=== PATIENT | male | born 1960 | race Caucasian/White ===

== ENCOUNTER 2019-02-16 17:09 | Inpatient (IN) | payer OTHER ==
[~2019-02-16] VITALS: Ht 175.3 cm; Wt 103.9 kg
--- NOTE | 2019-02-16 18:59 | Diagnostic Imaging Report ---
Examination: Single AP view of the chest. COMPARISON: None. INDICATION: Cough DISCUSSION: Lines/tubes: None. Lungs: The lungs are well inflated and clear. No pneumonia or pulmonary edema. Pleura: No pleural effusion or pneumothorax. Heart and mediastinum: The heart and the mediastinum are unremarkable. Bones and soft tissues: No acute bony abnormalities. IMPRESSION: 1. No acute cardiopulmonary abnormalities. Signed by: Dr. Gonzalez Holly M.D. on 02/16/2019 6:56 PM
[2019-02-16 19:55] LABS: BASOPHILS # (AUTO) 0.1 (0.0-0.1); BASOPHILS % 0.6 % (0.0-1.0); EOSINOPHILS # (AUTO) 0.2 (0.0-0.4); EOSINOPHILS % 1.3 % (0.0-6.0); HEMATOCRIT 42.8 % (38.2-49.6); HEMOGLOBIN 15.1 g/dL (14.0-18.0); LYMPHOCYTES % 19.1 % (18.0-39.1); MEAN CORPUSCULAR HEMOGLOBIN 31.4 pg (28-32); MEAN CORPUSCULAR HGB CONC 35.3 g/dL (31-35); MONOCYTES # (AUTO) 1.3 (0.2-0.8); MONOCYTES % 8.3 % (4.4-11.3); NEUTROPHILS # (AUTO) 11.2 (2.1-6.9); NEUTROPHILS % 70.4 % (38.7-80.0); PLATELET COUNT 270 x10e3/uL (140-360); RED BLOOD COUNT 4.81 x10e6/uL (4.3-5.7); RED CELL DISTRIBUTION WIDTH 13.8 % (11.7-14.4)
[2019-02-16] MEDS: VANCOMYCIN 1GM/NS 250 ML 250 ML IV SCH (20:05)
[2019-02-16 20:06] LABS: PROTHROMBIN TIME 13.7 seconds (11.9-14.5)
[2019-02-16] MEDS: PIPER-TAZ 3.375 GM 50 ML IV SCH (20:10)
[2019-02-16 20:13] LABS: ALANINE AMINOTRANSFERASE 36 IU/L (0-55); ALBUMIN 3.7 g/dL (3.5-5.0); ALBUMIN/GLOBULIN RATIO 0.8 (0.8-2.0); ALKALINE PHOSPHATASE 95 IU/L (40-150); ANION GAP 19.2 mmol/L (8-16); BLOOD UREA NITROGEN 16 mg/dL (7-26); BUN/CREATININE RATIO 14 (6-25); CALCIUM 10.5 mg/dL (8.4-10.2); CARBON DIOXIDE 24 mmol/L (22-29); CHLORIDE 99 mmol/L (98-107); CREATINE KINASE 598 IU/L (30-200); CREATININE, SERUM 1.14 mg/dL (0.72-1.25); EST GLOMERULAR FILTRATION RATE > 60 ML/MIN (60-); GLUCOSE 103 mg/dL (74-118); POTASSIUM 4.2 mmol/L (3.5-5.1); SODIUM 138 mmol/L (136-145)
--- NOTE | 2019-02-16 20:30 | NUR ---
ECHOCASCULAR TECH AT BEDSIDE FOR SONOGRAM AT THIS TIME.
[2019-02-16 20:46] LABS: B-TYPE NATRIURETIC PEPTIDE2 27.9 pg/mL (0-100)
[2019-02-16] MEDS ORDERED: ACETAMINOPHEN 325 MG TAB PO ONE (21:00)
[2019-02-16] MEDS ORDERED: MORPHINE SULFATE INJ 4 MG/ML INJ 1ML IV PRN (21:00)
[2019-02-16] MEDS ORDERED: MORPHINE SULFATE 2 MG/ML SYR 1ML IV PRN (21:00)
--- OUTSIDE RECORDS SUMMARY | 2019-02-16 21:21 | XMS REPORT ---
[facility] Address Unknown Phone Unavailable Care Team Providers Care Table Setter Name Role Phone Cookie TILLMAN Unavailable Unavailable Problems This patient has no known problems. Allergies, Adverse Reactions, Alerts This patient has no known allergies or adverse reactions. Medications This patient has no known medications. Results Test Description Test Time Test Comments Text Results Atomic Results Result Comments CHEST SINGLE (PORTABLE) 2019-02-16 18:55:00 [facility] [address] [address] Patient Name: DANTE APARICIO MR #: [id number] : 1960 Age/Sex: 59/M Req #: [id number] Adm Physician: Ordered by: MURIEL VILLASENOR OUT OF TOWN COLLECTION CLERK Report #: [id number] Location: ER Room/Bed: Procedure: [id number] DX/CHEST SINGLE (PORTABLE) Exam Date: 02/16/19 Exam Time: 1830 REPORT STATUS: Signed Examination: Single AP view of the chest. COM PARISON: None. INDICATION: Cough DISCUSSION: Lines/tubes: None. Lungs: The lungs are well inflated and clear. No pneumonia or pulmonary edema. Pleura: No pleural effusion or pneumothorax. Heart and mediastinum: The heart and the mediastinum are unremarkable. Bones and soft tissues: No acute bony abnormalities. IMPRESSION: 1. No acute cardiopulmonary abnormalities. Signed by: Dr. Ankit Garland M.D. on 02/16/2019 6:56 PM Dictated By: ANKIT GARLAND MD 56 Transcribed By: MALDONADO on 02/16/191855 COPY TO: MURIEL VILLASENOR NP
[2019-02-16] MEDS: SODIUM CHLORIDE 0.9% 1000ML 1,000 ML IV SCH (21:50)
[2019-02-16] MEDS: ONDANSETRON HCL INJ 2MG/ML 2ML 2 MG/ML VIAL IV PRN (21:50)
[2019-02-16] MEDS: MORPHINE SULFATE INJ 4 MG/ML INJ 1ML IV PRN (21:50)
[2019-02-16 23:14] VITALS: BP 124/58
[2019-02-16 23:26] VITALS: BP 124/58
[2019-02-17] VITALS (8 sets, daily range): BP systolic 124–144; BP diastolic 58–65
[2019-02-17] MEDS ORDERED: CRESTOR10 MG PO (00:11)
[2019-02-17] MEDS ORDERED: GABAPENTIN400 MG PO (00:11)
[2019-02-17] MEDS ORDERED: TYLENOL WITH C1 EAC1 PO (00:11)
[2019-02-17] MEDS ORDERED: BACLOFEN10 MG PO (00:11)
[2019-02-17] MEDS ORDERED: ATENOLOL50 MG PO (00:11)
[2019-02-17] MEDS ORDERED: ALLOPURINOL300 MG PO (00:11)
[2019-02-17] MEDS: MORPHINE SULFATE INJ 4 MG/ML INJ 1ML IV PRN ×5 (00:22→20:35)
[2019-02-17] MEDS: ONDANSETRON HCL INJ 2MG/ML 2ML 2 MG/ML VIAL IV PRN (03:56)
[2019-02-17 05:51] LABS: BASOPHILS # (AUTO) 0.1 (0.0-0.1); BASOPHILS % 0.6 % (0.0-1.0); EOSINOPHILS # (AUTO) 0.3 (0.0-0.4); EOSINOPHILS % 1.9 % (0.0-6.0); HEMATOCRIT 40.4 % (38.2-49.6); HEMOGLOBIN 13.4 g/dL (14.0-18.0); LYMPHOCYTES # (AUTO) 2.5 (1.0-3.2); LYMPHOCYTES % 15.2 % (18.0-39.1); MEAN CORPUSCULAR HEMOGLOBIN 30.6 pg (28-32); MEAN CORPUSCULAR HGB CONC 33.2 g/dL (31-35); MEAN CORPUSCULAR VOLUME 92.2 fL (81-99); MONOCYTES # (AUTO) 1.5 (0.2-0.8); MONOCYTES % 9.4 % (4.4-11.3); NEUTROPHILS # (AUTO) 11.7 (2.1-6.9); NEUTROPHILS % 72.5 % (38.7-80.0); PLATELET COUNT 255 x10e3/uL (140-360); RED BLOOD COUNT 4.38 x10e6/uL (4.3-5.7)
[2019-02-17] MEDS: PIPER-TAZ 3.375 GM 50 ML IV SCH ×3 (05:53→22:58)
[2019-02-17] MEDS: SODIUM CHLORIDE 0.9% 1000ML 1,000 ML IV SCH ×3 (05:53→20:57)
[2019-02-17 06:09] LABS: ALANINE AMINOTRANSFERASE 44 IU/L (0-55); ALBUMIN/GLOBULIN RATIO 0.8 (0.8-2.0); ALKALINE PHOSPHATASE 108 IU/L (40-150); ANION GAP 13.9 mmol/L (8-16); BLOOD UREA NITROGEN 16 mg/dL (7-26); BUN/CREATININE RATIO 16 (6-25); CALCIUM 9.1 mg/dL (8.4-10.2); CARBON DIOXIDE 25 mmol/L (22-29); CHLORIDE 102 mmol/L (98-107); CREATININE, SERUM 1.03 mg/dL (0.72-1.25); EST GLOMERULAR FILTRATION RATE > 60 ML/MIN (60-); GLUCOSE 113 mg/dL (74-118); POTASSIUM 3.9 mmol/L (3.5-5.1); SODIUM 137 mmol/L (136-145)
--- NOTE | 2019-02-17 07:25 | NUR ---
PT IN BED SLEEPING NO DISTRESS NOTED,NO S/S DISCOMFORT
[2019-02-17] MEDS ORDERED: ACETAMINOPHEN 325 MG TAB PO ONE (07:30)
[2019-02-17] MEDS: VANCOMYCIN 1GM/NS 250 ML 250 ML IV SCH ×2 (09:07→20:35)
--- NOTE | 2019-02-17 11:00 | NUR ---
PT C/O RT LEG PAIN LEVEL 6 MEDICATED
--- NOTE | 2019-02-17 14:05 | NUR ---
SOCIAL WORK INITIAL ASSESSMENT Washing Machine Mechanic to bedside to discuss plan of care with patient/family. CM/SW role and care transitions discussed. Anticipated discharge plan discussed along with duration of care. CM/SW discussed patients right to make decisions in care. CM/SW work hours given. Patient lives: IN OWN HOUSE WITH FAMILY Admit/Transfer: VIA ED POA/Emergency contact: LISA [phone] Current/Previous Home Health: NONE PCP/Follow-up Care: CLEMENTINE PATHAK Current/Previous DME: CPAP AT NIGHT Other Services: NONE Employment Status: [employer] Areas of Concerns: NONE Referral Needs: NONE Education Needs: NONE IMM/RÍOS given and signed (if applicable): NA Goal for discharge: RETURN HOME NO NEEDS CM/SW left business card at the bedside with contact information. Name and number was also written on the patients whiteboard. Patient verbalized understanding of discussion. CM will follow-up with ongoing discharge and transition of care needs.
--- NOTE | 2019-02-17 15:40 | NUR ---
H&P cc: right leg pain HPI: 59yoM, PCP none, developed right leg pain/redness for 2 days; with fever/chills/sweats. No prior cellulitis. Denies DM. PMH: Obesity, gout, HTN, Neuropathy, HLD, PSHx: none Allergies; see emr Fh/SH;; occ etoh; cigar occasionally Meds; see MAR rOS: no sob/cp/ANDINO/vision changes/skin rash/diarrhea/vomiting v/s; rev'd PE tired appearing anicteric ns1s2 mod bs soft nt nd right foreleg beefy red, warm, tender, edematous. DP 1+ labs/meds rev'd A/P: 59yoM Cellulitis of right leg Right leg edema HTN HLD Gout Neuropathy Obesity PLAN U/S negative for dvt IV abx hab1c resume home meds Lovenox Ronald Lee MD, PhD.
[2019-02-17] MEDS: ENOXAPARIN SOD INJ 40 MG/0.4 ML SYR SC SCH (17:00)
--- NOTE | 2019-02-17 18:12 | NUR ---
PT UP IN BED NO DISTRESS NOTED ,PAIN LEVEL 3
[2019-02-17] MEDS: SIMVASTATIN 20 MG TAB PO SCH (20:34)
[2019-02-17] MEDS ORDERED: GABAPENTIN 300 MG CAP PO SCH (21:00)
[2019-02-18] VITALS (8 sets, daily range): BP systolic 117–142; BP diastolic 56–72
[2019-02-18] MEDS: MORPHINE SULFATE INJ 4 MG/ML INJ 1ML IV PRN ×5 (00:07→20:13)
[2019-02-18] MEDS: SODIUM CHLORIDE 0.9% 1000ML 1,000 ML IV SCH ×3 (04:06→20:12)
[2019-02-18] MEDS: PIPER-TAZ 3.375 GM 50 ML IV SCH ×3 (05:18→14:03)
--- NOTE | 2019-02-18 08:00 | NUR ---
RECD PT IN BED AWAKE NEEDS IV,IV RESTARTED TO RT HAND 20 GAUGE.
--- NOTE | 2019-02-18 08:55 | NUR ---
PT C/O PAIN MEDICATED.
[2019-02-18] MEDS ORDERED: ALLOPURINOL 300 MG TAB PO SCH (09:00)
[2019-02-18] MEDS ORDERED: BACLOFEN 10 MG TAB PO SCH (09:00)
[2019-02-18] MEDS: VANCOMYCIN 1GM/NS 250 ML 250 ML IV SCH ×2 (09:01→20:12)
[2019-02-18] MEDS: ATENOLOL 50 MG TAB PO SCH (09:02)
--- NOTE | 2019-02-18 11:15 | NUR ---
PT TRANSPORTED TO [facility] VIA W/C
--- NOTE | 2019-02-18 12:10 | NUR ---
PT RETURNED TO ROOM ,FAREED [place][AIN
[2019-02-18] MEDS: ACETAMINOPHEN 325 MG TAB PO PRN (12:36)
[2019-02-18] MEDS ORDERED: GABAPENTIN 300 MG CAP PO SCH (15:00)
[2019-02-18] MEDS ORDERED: ONDANSETRON HCL 4 MG ORAL DISINTEGRATING TAB PO PRN (16:30)
[2019-02-18] MEDS: ENOXAPARIN SOD INJ 40 MG/0.4 ML SYR SC SCH (16:40)
--- NOTE | 2019-02-18 17:28 | NUR ---
PT UP IN BED NO DISTRESS NOTED,CULTURE OF FOT SENT TO LAB
--- NOTE | 2019-02-18 18:35 | NUR ---
IM- progress note O/N; no events rOS: no sob/cp/ANDINO/vision changes/skin rash/diarrhea/vomiting v/s; rev'd PE tired appearing anicteric ns1s2 mod bs soft nt nd right foreleg beefy red, warm, tender, edematous. DP 1+ labs/meds rev'd A/P: 59yoM Cellulitis of right leg Right leg edema HTN HLD Gout Neuropathy Obesity PLAN U/S negative for dvt IV abx hab1c resume home meds Lovenox check labs; cont abx; PreDM- hba1c is 5.8. check lipids; start ADA diet; Ronald Lee MD, PhD.
[2019-02-18] MEDS: GABAPENTIN 300 MG CAP PO SCH (20:12)
[2019-02-18] MEDS: BACLOFEN 10 MG TAB PO SCH (20:12)
[2019-02-18] MEDS: SIMVASTATIN 20 MG TAB PO SCH (20:12)
[2019-02-18] MEDS: ALLOPURINOL 300 MG TAB PO SCH (20:12)
[2019-02-19] VITALS (8 sets, daily range): BP systolic 123–151; BP diastolic 62–86
[2019-02-19] MEDS: MORPHINE SULFATE INJ 4 MG/ML INJ 1ML IV PRN ×5 (00:08→21:07)
[2019-02-19] MEDS: SODIUM CHLORIDE 0.9% 1000ML 1,000 ML IV SCH ×2 (04:37→19:16)
[2019-02-19] MEDS: PIPER-TAZ 3.375 GM 50 ML IV SCH ×3 (04:37→20:58)
[2019-02-19] MEDS: ACETAMINOPHEN 325 MG TAB PO PRN (06:11)
[2019-02-19 06:30] LABS: BASOPHILS # (AUTO) 0.1 (0.0-0.1); BASOPHILS % 0.7 % (0.0-1.0); EOSINOPHILS # (AUTO) 0.5 (0.0-0.4); EOSINOPHILS % 3.4 % (0.0-6.0); HEMATOCRIT 34.9 % (38.2-49.6); HEMOGLOBIN 12.1 g/dL (14.0-18.0); LYMPHOCYTES # (AUTO) 3.1 (1.0-3.2); LYMPHOCYTES % 19.9 % (18.0-39.1); MEAN CORPUSCULAR HEMOGLOBIN 31.7 pg (28-32); MEAN CORPUSCULAR HGB CONC 34.7 g/dL (31-35); MEAN CORPUSCULAR VOLUME 91.4 fL (81-99); MONOCYTES # (AUTO) 1.4 (0.2-0.8); MONOCYTES % 8.9 % (4.4-11.3); NEUTROPHILS # (AUTO) 10.4 (2.1-6.9); NEUTROPHILS % 66.3 % (38.7-80.0); PLATELET COUNT 361 x10e3/uL (140-360); RED BLOOD COUNT 3.82 x10e6/uL (4.3-5.7); RED CELL DISTRIBUTION WIDTH 14.5 % (11.7-14.4)
[2019-02-19 06:59] LABS: ANION GAP 13.6 mmol/L (8-16); BLOOD UREA NITROGEN 8 mg/dL (7-26); BUN/CREATININE RATIO 9 (6-25); CARBON DIOXIDE 26 mmol/L (22-29); CHLORIDE 105 mmol/L (98-107); CREATININE, SERUM 0.89 mg/dL (0.72-1.25); EST GLOMERULAR FILTRATION RATE > 60 ML/MIN (60-); GLUCOSE 113 mg/dL (74-118); POTASSIUM 3.6 mmol/L (3.5-5.1); SODIUM 141 mmol/L (136-145)
[2019-02-19 07:22] LABS: CHOL/HDL RATIO 7.4 (3.9-4.7)
--- NOTE | 2019-02-19 07:23 | NUR ---
PATIENT ASSISTED TO THE RESTROOM, SITTING AT BED SIDE. REQUESTED AND RECEIVED A CUP OF COFFEE. REDNESS AND SWELLING TO RIGHT FOOT. BED IN LOWER POSITION, CALL LIGHT AT REACH.
[2019-02-19] MEDS: GABAPENTIN 300 MG CAP PO SCH ×2 (09:21→17:32)
[2019-02-19] MEDS: ATENOLOL 50 MG TAB PO SCH (09:21)
[2019-02-19] MEDS: VANCOMYCIN 1GM/NS 250 ML 250 ML IV SCH ×2 (10:00→21:30)
--- NOTE | 2019-02-19 10:16 | NUR ---
IM- progress note O/N; no events rOS: no sob/cp/ANDINO/vision changes/skin rash/diarrhea/vomiting v/s; rev'd PE tired appearing anicteric ns1s2 mod bs soft nt nd right foreleg beefy red, warm, tender, edematous. DP 1+ labs/meds rev'd A/P: 59yoM Cellulitis of right leg Right leg edema HTN HLD Gout Neuropathy Obesity PLAN U/S negative for dvt IV abx hab1c resume home meds Lovenox check labs; cont abx; PreDM- hba1c is 5.8. check lipids; start ADA diet; 02/19 COntinue antibiotics; Ronald Lee MD, PhD.
--- NOTE | 2019-02-19 11:30 | NUR ---
PATIENT AMBULATED IN HALLWAY, NO DISTRESS OBSERVED. BACK TO BED, IV FLUID INFUSING ORDERED. CALL LIGHT AT REACH.
--- NOTE | 2019-02-19 15:34 | NUR ---
MD IN TO SEE PATIENT, NEW ORDER RECEIVED.
[2019-02-19] MEDS: ENOXAPARIN SOD INJ 40 MG/0.4 ML SYR SC SCH (17:32)
--- NOTE | 2019-02-19 19:20 | NUR ---
patient received awake, alert, lying quietly in bed. no c/o pain noted. ivf continue to infuse without difficulty. right leg remains red with 2+ edema. pm assessment complete. patient instructed to call for assistance when needed.
[2019-02-19] MEDS: SIMVASTATIN 20 MG TAB PO SCH (20:58)
[2019-02-19] MEDS: ALLOPURINOL 300 MG TAB PO SCH (20:58)
[2019-02-19] MEDS: BACLOFEN 10 MG TAB PO SCH (20:58)
--- NOTE | 2019-02-19 21:07 | NUR ---
patient medicated with morphine 4 mg ivp for right leg pain 7/ at this time. right leg remains elevated per orders.
[2019-02-20] VITALS: BP 136/68
[2019-02-20] MEDS: MORPHINE SULFATE INJ 4 MG/ML INJ 1ML IV PRN (03:25)
--- NOTE | 2019-02-20 03:25 | NUR ---
patient medicated with morphine 4 mg ivp for c/o right leg pain 7/ at this time.
[2019-02-20 04:00] VITALS: BP 126/67
[2019-02-20] MEDS: PIPER-TAZ 3.375 GM 50 ML IV SCH (04:40)
[2019-02-20 06:57] LABS: BASOPHILS # (AUTO) 0.1 (0.0-0.1); BASOPHILS % 0.7 % (0.0-1.0); EOSINOPHILS # (AUTO) 0.7 (0.0-0.4); EOSINOPHILS % 4.7 % (0.0-6.0); HEMATOCRIT 35.2 % (38.2-49.6); HEMOGLOBIN 12.2 g/dL (14.0-18.0); LYMPHOCYTES # (AUTO) 3.9 (1.0-3.2); LYMPHOCYTES % 25.4 % (18.0-39.1); MEAN CORPUSCULAR HEMOGLOBIN 31.4 pg (28-32); MEAN CORPUSCULAR HGB CONC 34.7 g/dL (31-35); MEAN CORPUSCULAR VOLUME 90.7 fL (81-99); MONOCYTES # (AUTO) 1.3 (0.2-0.8); MONOCYTES % 8.6 % (4.4-11.3); NEUTROPHILS # (AUTO) 9.1 (2.1-6.9); NEUTROPHILS % 59.6 % (38.7-80.0); PLATELET COUNT 451 x10e3/uL (140-360); RED BLOOD COUNT 3.88 x10e6/uL (4.3-5.7); RED CELL DISTRIBUTION WIDTH 14.5 % (11.7-14.4)
--- NOTE | 2019-02-20 07:19 | NUR ---
PATIENT IN BED RESTING WITH NO S/S OF DISTRESS. REDNESS AND SWELLING REMAINS TO RIGHT FOOT. ALL PERSONAL ITEMS CLOSE TO PATIENT. BED IN LOWER POSITION, CALL LIGHT AT REACH.
[2019-02-20 07:20] VITALS: BP 135/70
--- NOTE | 2019-02-20 07:41 | NUR ---
Discharge summary Principal dx; cellulitis of right leg Secondary Dx: Right leg edema HTN HLD Gout Neuropathy Obesity PLAN U/S negative for dvt IV abx hab1c resume home meds Lovenox check labs; cont abx; PreDM- hba1c is 5.8. check lipids; start ADA diet; 02/19 COntinue antibiotics; d/c home stable f/u PCP 1 week d/c>35mins. Ronald Lee MD, PhD.
[2019-02-20 07:43] VITALS: BP 135/70
[2019-02-20] MEDS ORDERED: CIPRO500 MG PO (07:43)
[2019-02-20] MEDS ORDERED: VIBRAMYCIN100 MG PO (07:43)
[2019-02-20] MEDS: GABAPENTIN 300 MG CAP PO SCH (09:00)
[2019-02-20] MEDS: VANCOMYCIN 1GM/NS 250 ML 250 ML IV SCH (09:30)
[2019-02-20] MEDS: ATENOLOL 50 MG TAB PO SCH (10:10)
--- NOTE | 2019-02-20 10:45 | NUR ---
PATIENT DISCHARGED HOME. DISCHARGE INSTRUCTIONS, PRESCRIPTIONS, AND FOLLOW UP GIVEN TO PATIENT, HE VERBALIZED UNDERSTANDING. IV TO RIGHT HAND REMOVED WITH TIP INTACT. ALL PERSONAL ITEMS TAKEN WITH PATIENT. REFUSED WHEEL CHAIR, BUT WAS ACCOMPANIED TO FRONT LOBBY BY HOSPITAL STAFF IN STABLE CONDITION.
[2019-02-20 14:52] LABS: EOSINOPHILS % (MANUAL) 3 % (0-7); LYMPHOCYTES % (MANUAL) 22 % (19-48); MONOCYTES % (MANUAL) 11 % (3.4-9.0); NEUTROPHILS % (MANUAL) 61 % (40-74)
[2019-02-20 14:53] LABS: RBC MORPHOLOGY COMMENT NORMAL
[2019-02-20 14:54] LABS: ANISOCYTOSIS SLIGHT; PLATELET ESTIMATE ADEQUATE; PLATELET MORPHOLOGY COMMENT NORMAL
== END 2019-02-20 10:55 | disposition home or self-care (01) | DRG 872 ==
LOC: ER 17:09 → ERHOLD 21:19 → MED/SURG3 22:54
PROVIDERS: ADMIT Internal Medicine; ATTEND Internal Medicine
DX: A41.9 Sepsis, unspecified organism (principal); L03.115 Cellulitis of right lower limb; E11.9 Type 2 diabetes mellitus without complications; E78.5 Hyperlipidemia, unspecified; M10.9 Gout, unspecified; E66.9 Obesity, unspecified; Z68.33 Body mass index [BMI] 33.0-33.9, adult
CPT/HCPCS: 36415; 71045; 80048; 80053; 80061; 80202; 82550; 82553; 82948; 83036; 83605; 83880; 84484; 85025; 85610; 85730; 87040; 93005; 93971; 99284; J1650; J2270; J2405; J2543; J3370; J7030

== ENCOUNTER 2022-03-15 18:46 | Emergency (ER) | payer BC, OTHER ==
[~2022-03-15] VITALS: Ht 175.3 cm; Wt 103.9 kg
[~2022-03-15 18:46] MED LIST: ALLOPURINOL300 MG PO; ATENOLOL50 MG PO; BACLOFEN10 MG PO; CIPRO500 MG PO; CRESTOR10 MG PO; GABAPENTIN400 MG PO; TYLENOL WITH C1 EAC1 PO; VIBRAMYCIN100 MG PO
[2022-03-15] MEDS ORDERED: HYDROCODONE/APAP 5MG-325MG TAB PO ONE (19:30)
[2022-03-15] MEDS ORDERED: CEPHALEXIN 500 MG CAP PO ONE (19:30)
[2022-03-15] MEDS ORDERED: CEPHALEXIN 500 MG CAP ONE (19:45)
[2022-03-15] MEDS ORDERED: HYDROCODONE/APAP 5MG-325MG TAB ONE (19:45)
[2022-03-15] MEDS ORDERED: KEFLEX125 MG/5 M PO (20:21)
[2022-03-15] MEDS ORDERED: ACETAMINOPHEN-1 EAC4 PO (20:26)
[2022-03-15] MEDS ORDERED: CEPHALEXIN500 MG PO (20:26)
== END 2022-03-15 20:37 | disposition home or self-care (01) ==
LOC: ER 18:52
DX: L03.115 Cellulitis of right lower limb (principal); I10 Essential (primary) hypertension; M10.9 Gout, unspecified; G25.81 Restless legs syndrome
CPT/HCPCS: 93971; 99282